=== PATIENT | male | born 1950 | race Two or more races ===

== ENCOUNTER 2022-01-21 13:34 | Emergency (ER) | payer SELFPAY ==
[~2022-01-21] VITALS: Ht 162.6 cm; Wt 63.2 kg
[2022-01-21 14:38] LABS: Basophils # (auto) 0.1 10 ^3/uL (0-0.2); Basophils % (auto) 0.6 % (0.0-2.0); Eosinophils # (auto) 0 10 ^3/uL (0-0.8); Eosinophils % (auto) 0.1 % (0.0-7.0); Hematocrit 44.4 % (41.0-53.0); Hemoglobin 14.5 g/dL (13.5-17.5); Lymphocytes # (auto) 0.6 10 ^3/uL (0.4-5.4); Lymphocytes % (auto) 4.5 % (10.0-50.0); Mean Corpuscular Hemoglobin 29.1 pg (28.0-32.0); Mean Corpuscular Hgb Conc. 32.5 g/dL (32.0-36.0); Mean Corpuscular Volume 89.3 fL (80.0-100.0); Monocytes # (auto) 0.4 10 ^3/uL (0-1.3); Monocytes % (auto) 3.3 % (0.0-12.0); Neutrophils # (auto) 11.4 10 ^3/uL (1.6-8.6); Neutrophils % (auto) 91.5 % (37.0-80.0); Red Blood Cells 4.97 10^6/uL (4.5-5.90); White Blood Cell 12.5 10^3/uL (4.4-10.8)
[2022-01-21 14:53] LABS: Albumin 4.2 g/dL (3.4-5.0); BUN/Creatinine Ratio 17.8; Calcium 10.1 mg/dL (8.5-10.1); Potassium 4.1 mmol/L (3.5-5.1)
[2022-01-21 14:56] LABS: Total Protein 7.4 g/dL (6.4-8.2)
[2022-01-21 14:58] LABS: INR 0.96 (0.9-1.15); Partial Thromboplastin Time 25.1 sec (24.6-33.4)
[2022-01-21] MEDS ORDERED: SODIUM CHLORIDE 0.9% 1,000 ML IV ONE (17:00)
[2022-01-21] MEDS ORDERED: KETOROLAC TROMETH 30 MG/ML 1ML VIAL IV ONE (17:00)
[2022-01-21 20:53] LABS: Urine Bacteria NONE SEEN /hpf (None Seen); Urine Blood Negative /uL (Negative); Urine Mucus FEW (None Seen); Urine WBC 8 /hpf (0 - 3)
[2022-01-21] MEDS ORDERED: CIPR-173 PO (22:35)
[2022-01-21] MEDS ORDERED: ONDA-144 PO (22:35)
[2022-01-22] MEDS ORDERED: cefTRIAXone 1GM/50ML D5W 50 ML IV ONE (03:15)
[2022-01-22 08:16] VITALS: BP 128/76
== END 2022-01-22 08:41 | disposition home or self-care (01) ==
LOC: ER 13:34
DX: K80.20 Calculus of gallbladder without cholecystitis without obstruction (principal); N20.0 Calculus of kidney; N39.0 Urinary tract infection, site not specified; I10 Essential (primary) hypertension; E78.5 Hyperlipidemia, unspecified; F17.210 Nicotine dependence, cigarettes, uncomplicated
CPT/HCPCS: 36415; 74176; 80053; 81001; 82150; 83690; 85025; 85610; 85730; 93005; 96360; 99285; J7030; J0696; J1885